=== PATIENT | male | born 1990 | race Caucasian/White ===

== ENCOUNTER 2025-01-07 11:55 | Day surgery (SDC) | payer BC, SELFPAY ==
--- NOTE | 2025-01-04 10:50 | EKG_ITS ---
[facility] Test Date: 2025-01-04 Pat Name: TRIPP OSHEA Department: Room: - Gender: Male Strategy Intern: RT STUDENT : 1990 Requested By: Mary Vang Order Number: [id number] Reading MD: Mary Vang Measurements Intervals [place] Rate: 73 P: 42 TN: 163 QRS: -12 QRSD: 98 T: 16 QT: 370 QTc: 409 Interpretive Statements SINUS RHYTHM WARNING: DATA QUALITY MAY AFFECT INTERPRETATION No previous ECG available for comparison /[id number]
[2025-01-04 11:18] LABS: Partial Thromboplastin Time 25.3 Seconds (22.0-36.0); Prothrombin Time 10.9 Seconds (9.0-12.2)
[2025-01-04 11:28] LABS: Alanine Aminotransferase 44 U/L (10-49); Albumin, Serum 4.6 gm/dL (3.5-5.0); Albumin/Globulin Ratio 1.8 (1.2-2.2); Alkaline Phosphatase 63 U/L (46-116); Anion Gap 9 (7-16); Aspartate Amino Transferase 27 U/L (0-34); BUN/Creatinine Ratio 12 Ratio (12-20); Bilirubin,Total 0.8 mg/dL (0.3-1.2); Blood Urea Nitrogen 13 mg/dL (9-23); Calcium 9.7 mg/dL (8.3-10.6); Calcium (Corrected) 9.7 mg/dL (8.5-10.1); Carbon Dioxide 24.9 mMol/L (20.0-31.0); Chloride 106 mMol/L (98-107); Creatinine (Component) 1.1 mg/dL (0.6-1.3); Globulin 2.6 gm/dL (2.3-3.5); Glucose 100 mg/dL (74-106); Osmolality,Calculated 279 (275-295); Potassium 4.2 mMol/L (3.4-5.1); Sodium 140 mMol/L (136-145); Total Protein 7.2 gm/dL (5.7-8.2); eGFR > 60 See Note
[2025-01-04 14:36] VITALS: BMI 56.9
[2025-01-07 12:43] VITALS: BP 155/90; PULSE 65; RESP 18; TEMP 36.3; O2SAT 95
[2025-01-07 16:29] VITALS: BP 95/67; PULSE 67; RESP 22; TEMP 36.5; O2SAT 98
[2025-01-07 16:35] VITALS: BP 108/64; PULSE 63; RESP 13; TEMP 36.5; O2SAT 96
[2025-01-07 16:40] VITALS: BP 110/68; PULSE 67; RESP 17; TEMP 36.4; O2SAT 98
--- NOTE | 2025-01-07 16:42 | SUR.PHASEII ---
pt able to tolerate oral fluids without difficulty swallowing or nausea/vomiting.
[2025-01-07 16:45] VITALS: BP 124/76; PULSE 69; RESP 12; TEMP 36.4; O2SAT 97
[2025-01-07 17:00] VITALS: BP 111/72; PULSE 65; RESP 14; TEMP 36.3; O2SAT 96
--- NOTE | 2025-01-07 17:09 | SUR.PHASEII ---
pt awake and alert, breathing unlabored on room air. v/s stable. pt able to ambulate to wheelchair with steady gait. d/c instructions given with friend [place] in room, all questions answered. pt d/c via wheelchair with all belongings.
== END 2025-01-07 17:09 | disposition home or self-care (01) ==
LOC: S2EX 12:12
PROVIDERS: PCP Surgery; Referring Provider Specialist; Visit Provider Specialist
PROC: (CPT 43239; principal; 2025-01-07 14:15)
DX: K20.90 Esophagitis, unspecified without bleeding (principal); Z01.812 Encounter for preprocedural laboratory examination; Z01.818 Encounter for other preprocedural examination; K22.10 Ulcer of esophagus without bleeding; K29.70 Gastritis, unspecified, without bleeding
CPT/HCPCS: 43239; 36415; 80053; 85610; 85730; 93005; A4649; J3490